=== PATIENT | male | born 1945 ===

== ENCOUNTER 2022-05-08 08:03 | Day surgery (SDC) | payer OTHER ==
[2022-05-04 11:29] LABS: SARS-CoV-2 Antigen Rapid Res Negative (Negative)
--- NOTE | 2022-05-04 15:06 | EKG ---
Test Date: 2022-05-04 Test Time: 09:34:53 [employer]: ALISSA MEASUREMENT RESULTS: Intervals: Rate: 51 OR: 166 QRSD: 78 QT: 418 QTc: 385 [place]: P: 66 OR: 166 QRS: -6 T: 79 INTERPRETIVE STATEMENTS: Sinus bradycardia Otherwise normal ECG No previous ECG available for comparison Electronically Signed On 05-04-22 15:06:04 CDT by Zan East
[2022-05-08] MEDS ORDERED: Ringers Lactate 1,000 ML IV ONE (08:26)
[2022-05-08] MEDS ORDERED: BACITRACIN OINTMENT 14 GM TUBE TOP ONE (09:43)
[2022-05-08] MEDS ORDERED: LIDOCAINE 1% W/EPI 1:100,000 10 ML VIAL ONE (09:43)
[2022-05-08] MEDS ORDERED: propofoL 200 MG/20 ML VIAL IV ONE (09:46)
[2022-05-08] MEDS ORDERED: FENTANYL CITR 100 MCG/2 ML ONE (09:46)
[2022-05-08] MEDS ORDERED: LIDOCAINE 1% MPF 5 ML VIAL ONE (09:46)
[2022-05-08] MEDS ORDERED: MIDAZOLAM HCL 2 MG/2 ML INJ ONE (09:46)
[2022-05-08] MEDS ORDERED: GLYCOPYRROLATE 0.2 MG/ML SYR ONE (10:15)
[2022-05-08] MEDS ORDERED: EPHEDRINE SULF 50 MG/ML VIAL ONE (10:16)
--- NOTE | 2022-05-08 11:43 | P.OP ---
Cancer Spec: NONE,NONE Preoperative diagnosis: squamous cell carcinoma, left ear Postoperative diagnosis: same Primary procedure: excision maligant skin lesion, left ear 2.0 x 2.7 cm defect Secondary procedure: skin graft substitute Anesthesia: general Estimated blood loss: 5ml Specimen: 1. left ear, Frozen 2. left ear deep margin, permanent Findings: negative periperhal margin, deep margin positive in lower portion Operative Technique: After adequate plane of anesthesia, the left external ear was cleaned with alcohol. The area surrounding the healed biopsy site was noted to have some areas of superficial crusting which extended to the helix. A margin of approximately 5 mm was drawn around the area of gross suspicious tumor. Approximately 2 mL of 1% lidocaine with epinephrine were injected into the surgical site. The area was prepped with Betadine and draped in a sterile fashion. A 15 blade scalpel was used to incise along the planned incision site and the full-thickness skin was sharply elevated off of the perichondrium. The specimen was marked with a suture to indicate 12:00 which coincided with the lateral most portion along the helix. The specimen was sent to pathology for frozen section analysis. The pathologist confirmed residual areas of squamous cell carcinoma with a negative peripheral margin but a positive deep margin where in the lower aspects, corresponding to the area of the antihelix and approaching the asha had areas where tumor touched the deep margin. Clinically this deep margin coin cided with the cartilage of the ear. After consultation with the pathologist in regards to the findings, a decision was made to excise a new deep margin but defer to permanent section rather than attempt frozen section on cartilage. On return to the operating room, an incision was made along the edge of the antihelix and through the cartilage extending from approximately 3:00 through 9:00. The cartilage was carefully elevated using a [place] elevator and iris scissors from the posterior skin of the external ear. This cartilage specimen was marked with a suture to correspond with 6:00 and the true margin was inked. The defect was then examined. Enough residual cartilage was intact to maintain the overall shape of the ear. The defect measured 27 x 20 mm. A skin graft was felt to be the optimal reconstruction option. A TheraSkin donor graft was prepared in accordance with swatch clerk instruction and trimmed to appropriate length. The graft was then applied to the defect on the left ear and secured in a radial fashion using 2-0 silk suture. A Xeroform bolster was then applied and the silk sutures used to secure the bolster to the site. The surrounding area was cleaned and dried. All counts including needles were reported as correct and the procedure was concluded. The patient was returned to care of anesthesia for awakening extubation in the operating room and transferred to the recovery room in stable condition. Complications: None Implants: none Fluids & blood products: crystalloid 900ml Transferred to: Recovery Room Condition: Good
[2022-05-08 12:53] VITALS: BP 141/54; TEMP 96.4; O2SAT 100
== END 2022-05-08 13:20 | disposition home or self-care (01) ==
LOC: PRE 08:03
PROVIDERS: ATTEND Otolaryngology
PROC: 09B1XZZ Excision of Left External Ear, External Approach (ICD-10-PCS; principal; 2022-05-08 09:15)
DX: L57.0 Actinic keratosis (principal); C44.229 Squamous cell carcinoma of skin of left ear and external auricular canal; Z20.822 Contact with and (suspected) exposure to COVID-19
CPT/HCPCS: 93005; 36415; 88331; 88332; 88305 ×2; 87811; 11643; 15275; J2704; J2001; J2250; J3010; J7120